=== PATIENT | male | born 1940 | race Asian ===

== ENCOUNTER 2017-03-14 11:57 | Day surgery (SDC) | payer OTHER | END 2017-03-14 17:30 | disposition home or self-care (01) | LOC: OR 11:57 | PROC: 0DB68ZZ Excision of Stomach, Via Natural or Artificial Opening Endoscopic (ICD-10-PCS; principal; 2017-03-14) | PROC: 0D738ZZ Dilation of Lower Esophagus, Via Natural or Artificial Opening Endoscopic (ICD-10-PCS; 2017-03-14) | DX: K21.0 Gastro-esophageal reflux disease with esophagitis (principal); K22.2 Esophageal obstruction; K44.9 Diaphragmatic hernia without obstruction or gangrene; K29.00 Acute gastritis without bleeding; R13.19 Other dysphagia; R10.13 Epigastric pain; K29.70 Gastritis, unspecified, without bleeding | CPT/HCPCS: J3010 ==